=== PATIENT | female | born 1950 | race Caucasian/White ===

== ENCOUNTER 2019-02-23 09:00 | Outpatient (RCR) | payer MEDICARE, SELFPAY ==
--- NOTE | 2019-01-19 13:00 | PT.OIE ---
Current Diagnoses Cystocele, unspecified (01/19/19) Past Medical History (Last Updated 12/17/18 @ 08:54 by Nury Camara MD) Cystocele without uterine prolapse (Acute) Diverticulitis (Acute) Visit Care Team Role Provider Type Chiara Vera PA-C Primary Care Provider Advanced Apprentice Specialty: Internal Medicine Address: [address] [place] [address], [address] Email: [email or web address] Care Information Networkamerican fork hospital Nury Camara MD Attending Provider Physician Specialty: RISK ASSESSMENT CONSULTANT Address: [address] [place] [address], [address] Email: [email or web address] Physical Therapy Initial Evaluation PT-OP-A Visit Information Start: 01/19/19 10:13 Freq: Status: Active Protocol: Document 01/19/19 11:15 AMB (Rec: 01/25/19 11:07 AMB [email or web address]) Out-Patient Physical Therapy Visit Information Visit Information Visit Type Initial Evaluation Visit Start Time 11:15 Visit Stop Time 12:00 Total Visit Minutes 45 Visit Number 1 PT-OP-B Current Condition Start: 01/19/19 10:13 Freq: Status: Active Protocol: Document 01/19/19 11:15 AMB (Rec: 01/25/19 11:07 AMB [email or web address]) Current Condition History of Current Condition Onset Date 2 months ago Current Complaints heaviness/ falling out freddie with standing/ lifting History of Current Condition 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 She went to her OBGYN and was diagnosed with a cystocele, and is concerned about if it will get worse. She has noticed urinary leaking since childhood with strong laughing but denies any increase in these symptoms. Her recently passed, and he was in his 90s so she has not been sexually active in a while, but denies pain with intercourse previously. She does note that the prolapse is uncomfortable at times currently. She has a history of 1 vaginal delivery and denies remembering any symptoms around that time. Prior Functional Status Baseline Function- ADL's Independent Baseline Function- Mobility Independent Current Functional Impairments (Reported) Functional Limitations- ADL's Letting her daughter and farm hands do the heavy work Personal Factors Other Personal Factors That May Effect lives on a farm and wants to Therapy/Recovery do heavy chores PT-OP-C Subjective Start: 01/19/19 10:13 Freq: Status: Active Protocol: Document 01/19/19 11:15 AMB (Rec: 01/25/19 11:07 AMB [email or web address]) Patient Questionnaires Pelvic Pain and Urgency/Frequency Patient Symptom Scale Pelvic Pain Score 4 PT-OP-I Pelvic Floor Start: 01/19/19 10:13 Freq: Status: Active Protocol: Document 01/19/19 11:15 AMB (Rec: 01/25/19 11:07 AMB [email or web address]) Pelvic Floor Assessment Urine Pelvic Floor Surgery No Urinary Symptoms Prolapse,Falling Out Feeling/ Heavy Other Leakage Causes laughing for extended periods of time very infrequently Pelvic Clock Pelvic Clock 12-3 Atrophy Pelvic Clock 3-6 Atrophy Pelvic Clock 6-9 Atrophy Pelvic Clock 9-12 Atrophy Prolapse Cystocele Grade 2 Perineal Descent Resting Absent Bearing Present Contraction Ability Voluntary Contraction Weak Voluntary Relaxation Moderate Manual Muscle Testing Left 3 Manual Muscle Testing Right 3 Manual Muscle Testing Anterior 3 Manual Muscle Testing Posterior 3 Muscle Endurance (Seconds) 5 Number of Quick Contractions In 10 5 Seconds Comments Pelvic Floor Comments Tends to over utilize abdominal muscles PT-OP-T Assessment and Plan Start: 01/19/19 10:13 Freq: Status: Active Protocol: Document 01/19/19 11:15 AMB (Rec: 01/25/19 11:07 AMB [email or web address]) Physical Therapy Assessment Rehab Potential Rehabilitation Potential Good Evaluation Complexity Number of Personal Factors/Comorbidities 1-2 Number of Body Systems Impaired 1-2 Clinical Presentation at Evaluation Stable Impairments Impairments Strength Goals Two Impairment HEP Short Term Goal (STG) Karla will be independent and consistent with a HEP that helps her strengthen her pelvic floor. STG Duration 4 weeks Multi Slide Machine Tender Goal (LTG) Karla will lift 20 pounds with good body mechanics while xuan her pelvic floor. LTG Duration 8 weeks One Impairment Prolapse Short Term Goal (STG) Karla will show improved pelvic floor strength to 4/5 to help her decrease her symptoms of prolapse. STG Duration 4 weeks Fpc Goal (LTG) Karla will stand for 2 hours on her farm without a feeling of pelvic heaviness or falling out. LTG Duration 8 weeks Assessment Summary Assessment Karla attends PT with new onset prolapse symptoms. She does have a distant history of stress incontinence with laughing only, but these symptoms have not changed. 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 She will benefit from physical therapy to strengthen her pelvic floor and give her a better idea of how to isolate the pelvic floor with lifting and squatting activities that she does on a daily basis. Physical Therapy Plan Frequency and Duration Frequency of Treatment 1x/Week Duration of Treatment 8 weeks Plan of Care Start Date 01/19/19 Plan of Care End Date 03/16/19 Therapeutic Interventions Therapeutic Interventions Home Exercise Program,Manual Therapy,Neuromuscular Re- education,Self-Care/Home Management,Therapeutic Activities,Therapeutic Exercises Modalities Biofeedback,Electric Stimulation Next Visit Focus/Plan Next Note Type Treatment Note Next Visit Plan Begin sEMG, begin teaching pelvic floor contraction with functional activities: sit to stand/ lifting as tolerated and can do so with good form/ without compensation
--- NOTE | 2019-01-19 13:01 | PT.OPPOC ---
Current Diagnoses Cystocele, unspecified (01/19/19) Visit Care Team Role Provider Type Chiara Vera PA-C Primary Care Provider Advanced Radio Frequency Design Engineer Specialty: Internal Medicine Address: [address] [place] [address], [address] Email: [email or web address] Nury Camara MD Attending Provider Physician Specialty: URGENT CARE TECHNICIAN Address: [address] [place] [address], [address] Email: [email or web address] Plan Of Care PT-OP-T Assessment and Plan Start: 01/19/19 10:13 Freq: Status: Active Protocol: Document 01/19/19 11:15 AMB (Rec: 01/25/19 11:07 AMB [email or web address]) Physical Therapy Assessment Rehab Potential Rehabilitation Potential Good Evaluation Complexity Number of Personal Factors/Comorbidities 1-2 Number of Body Systems Impaired 1-2 Clinical Presentation at Evaluation Stable Impairments Impairments Strength Goals Two Impairment HEP Short Term Goal (STG) Karla will be independent and consistent with a HEP that helps her strengthen her pelvic floor. STG Duration 4 weeks Halfway Goal (LTG) Karla will lift 20 pounds with good body mechanics while xuan her pelvic floor. LTG Duration 8 weeks One Impairment Prolapse Short Term Goal (STG) Karla will show improved pelvic floor strength to 4/5 to help her decrease her symptoms of prolapse. STG Duration 4 weeks Clerical Office Goal (LTG) Karla will stand for 2 hours on her farm without a feeling of pelvic heaviness or falling out. LTG Duration 8 weeks Assessment Summary Assessment Karla attends PT with new onset prolapse symptoms. She does have a distant history of stress incontinence with laughing only, but these symptoms have not changed. 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 She will benefit from physical therapy to strengthen her pelvic floor and give her a better idea of how to isolate the pelvic floor with lifting and squatting activities that she does on a daily basis. Physical Therapy Plan Frequency and Duration Frequency of Treatment 1x/Week Duration of Treatment 8 weeks Plan of Care Start Date 01/19/19 Plan of Care End Date 03/16/19 Therapeutic Interventions Therapeutic Interventions Home Exercise Program,Manual Therapy,Neuromuscular Re- education,Self-Care/Home Management,Therapeutic Activities,Therapeutic Exercises Modalities Biofeedback,Electric Stimulation Next Visit Focus/Plan Next Note Type Treatment Note Next Visit Plan Begin sEMG, begin teaching pelvic floor contraction with functional activities: sit to stand/ lifting as tolerated and can do so with good form/ without compensation Plan of Care Dates Plan of Care Start Date 01/19/19 Plan of Care End Date 03/16/19
--- NOTE | 2019-01-26 16:13 | PT.OTN ---
Current Diagnoses Cystocele, unspecified (01/26/19) Physical Therapy Treatment Note PT-OP-A Visit Information Start: 01/19/19 10:13 Freq: Status: Active Protocol: Document 01/26/19 11:15 AMB (Rec: 01/26/19 13:42 AMB [email or web address]) Out-Patient Physical Therapy Visit Information Visit Information Visit Type Treatment Note Visit Start Time 11:15 Visit Stop Time 12:00 Total Visit Minutes 45 Visit Number 2 PT-OP-B Current Condition Start: 01/19/19 10:13 Freq: Status: Active Protocol: Document 01/19/19 11:15 AMB (Rec: 01/25/19 11:07 AMB [email or web address]) Current Condition History of Current Condition Onset Date 2 months ago Current Complaints heaviness/ fallingout freddie with standing/ lifting History of Current Condition 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 She went to her OBGYN and was diagnosed with a cystocele, and is concerned about if it will get worse. She has noticed urinary leaking since childhood with strong laughing but denies any increase in these symptoms. Her recently passed, and he was in his 90s so she has not been sexually active in a while, but denies pain with intercourse previously. She does note that the prolapse is uncomfortable at times currently. She has a history of 1 vaginal delivery and denies remembering any symptoms around that time. 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 Lying down and doing a bridge helps with getting the prolapse to reduce a bit. PT-OP-I Pelvic Floor Start: 01/19/19 10:13 Freq: Status: Active Protocol: Document 01/19/19 11:15 AMB (Rec: 01/25/19 11:07 AMB [email or web address]) Pelvic Floor Assessment Urine Pelvic Floor Surgery No Urinary Symptoms Prolapse,Falling Out Feeling/ Heavy Other Leakage Causes laughing for extended periods of time very infrequently Pelvic Clock Pelvic Clock 12-3 Atrophy Pelvic Clock 3-6 Atrophy Pelvic Clock 6-9 Atrophy Pelvic Clock 9-12 Atrophy Prolapse Cystocele Grade 2 Perineal Descent Resting Absent Bearing Present Contraction Ability Voluntary Contraction Weak Voluntary Relaxation Moderate Manual Muscle Testing Left 3 Manual Muscle Testing Right 3 Manual Muscle Testing Anterior 3 Manual Muscle Testing Posterior 3 Muscle Endurance (Seconds) 5 Number of Quick Contractions In 10 5 Seconds Comments Pelvic Floor Comments Tends to over utilize abdominal muscles PT-OP-Q Treatments Start: 01/19/19 10:13 Freq: Status: Active Protocol: Document 01/26/19 11:15 AMB (Rec: 01/26/19 16:13 AMB [email or web address]) Therapeutic Exercises Supine Exercises 1 Supine Exercise Name long holds and quick flicks Neuro Re-Education Treatment Other Activities 1 Details sEMG with quick flicks and 10 second holds PT-OP-T Assessment and Plan Start: 01/19/19 10:13 Freq: Status: Active Protocol: Document 01/26/19 11:15 AMB (Rec: 01/26/19 16:13 AMB [email or web address]) Physical Therapy Assessment Assessment Summary Assessment Karla had a lot of questions about if her symptoms will worsen, the use of pessaries. Did well with sEMG, maximum of 7, baseline 1. Physical Therapy Plan Next Visit Focus/Plan Next Note Type Treatment Note Next Visit Plan Begin sEMG, begin teaching pelvic floor contraction with functional activities: sit to stand/ lifting as tolerated and can do so with good form/ without compensation
--- NOTE | 2019-02-03 16:29 | PT.OTN ---
Current Diagnoses Cystocele, unspecified (02/03/19) Physical Therapy Treatment Note PT-OP-A Visit Information Start: 01/19/19 10:13 Freq: Status: Active Protocol: Document 02/03/19 10:30 AMB (Rec: 02/03/19 16:29 AMB [email or web address]) Out-Patient Physical Therapy Visit Information Visit Information Visit Type Treatment Note Visit Start Time 11:15 Visit Stop Time 12:00 Total Visit Minutes 45 Visit Number 3 PT-OP-B Current Condition Start: 01/19/19 10:13 Freq: Status: Active Protocol: Document 01/19/19 11:15 AMB (Rec: 01/25/19 11:07 AMB [email or web address]) Current Condition History of Current Condition Onset Date 2 months ago Current Complaints heaviness/ fallingout freddie with standing/ lifting History of Current Condition 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 She went to her OBGYN and was diagnosed with a cystocele, and is concerned about if it will get worse. She has noticed urinary leaking since childhood with strong laughing but denies any increase in these symptoms. Her recently passed, and he was in his 90s so she has not been sexually active in a while, but denies pain with intercourse previously. She does note that the prolapse is uncomfortable at times currently. She has a history of 1 vaginal delivery and denies remembering any symptoms around that time. 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 PT-OP-I Pelvic Floor Start: 01/19/19 10:13 Freq: Status: Active Protocol: Document 01/19/19 11:15 AMB (Rec: 01/25/19 11:07 AMB [email or web address]) Pelvic Floor Assessment Urine Pelvic Floor Surgery No Urinary Symptoms Prolapse,Falling Out Feeling/ Heavy Other Leakage Causes laughing for extended periods of time very infrequently Pelvic Clock Pelvic Clock 12-3 Atrophy Pelvic Clock 3-6 Atrophy Pelvic Clock 6-9 Atrophy Pelvic Clock 9-12 Atrophy Prolapse Cystocele Grade 2 Perineal Descent Resting Absent Bearing Present Contraction Ability Voluntary Contraction Weak Voluntary Relaxation Moderate Manual Muscle Testing Left 3 Manual Muscle Testing Right 3 Manual Muscle Testing Anterior 3 Manual Muscle Testing Posterior 3 Muscle Endurance (Seconds) 5 Number of Quick Contractions In 10 5 Seconds Comments Pelvic Floor Comments Tends to over utilize abdominal muscles PT-OP-Q Treatments Start: 01/19/19 10:13 Freq: Status: Active Protocol: Document 02/03/19 10:30 AMB (Rec: 02/03/19 16:29 AMB [email or web address]) Therapeutic Exercises Supine Exercises 2 Supine Exercise Name roll ins/ roll outs Reps/Minutes #2 t band Comments 2x10 ea Neuro Re-Education Treatment Other Activities 1 Details sEMG with quick flicks and 10 second holds PT-OP-T Assessment and Plan Start: 01/19/19 10:13 Freq: Status: Active Protocol: Document 02/03/19 10:30 AMB (Rec: 02/03/19 16:29 AMB [email or web address]) Physical Therapy Assessment Assessment Summary Assessment Did better today holding 10 second holds, did tend to fatigue towards end of session . gave roll in roll outs for HEP. Physical Therapy Plan Next Visit Focus/Plan Next Note Type Treatment Note Next Visit Plan Begin sEMG, begin teaching pelvic floor contraction with functional activities: sit to stand/ lifting as tolerated and can do so with good form/ without compensation
--- NOTE | 2019-02-10 15:54 | PT.OTN ---
Current Diagnoses Cystocele, unspecified (02/09/19) Physical Therapy Treatment Note PT-OP-A Visit Information Start: 01/19/19 10:13 Freq: Status: Active Protocol: Document 02/09/19 09:00 AMB (Rec: 02/10/19 13:01 AMB [email or web address]) Out-Patient Physical Therapy Visit Information Visit Information Visit Type Treatment Note Visit Start Time 09:00 Visit Stop Time 09:45 Total Visit Minutes 45 Visit Number 4 PT-OP-B Current Condition Start: 01/19/19 10:13 Freq: Status: Active Protocol: Document 01/19/19 11:15 AMB (Rec: 01/25/19 11:07 AMB [email or web address]) Current Condition History of Current Condition Onset Date 2 months ago Current Complaints heaviness/ fallingout freddie with standing/ lifting History of Current Condition 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 She went to her OBGYN and was diagnosed with a cystocele, and is concerned about if it will get worse. She has noticed urinary leaking since childhood with strong laughing but denies any increase in these symptoms. Her recently passed, and he was in his 90s so she has not been sexually active in a while, but denies pain with intercourse previously. She does note that the prolapse is uncomfortable at times currently. She has a history of 1 vaginal delivery and denies remembering any symptoms around that time. 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 Static standing is the most symptomatic. PT-OP-I Pelvic Floor Start: 01/19/19 10:13 Freq: Status: Active Protocol: Document 01/19/19 11:15 AMB (Rec: 01/25/19 11:07 AMB [email or web address]) Pelvic Floor Assessment Urine Pelvic Floor Surgery No Urinary Symptoms Prolapse,Falling Out Feeling/ Heavy Other Leakage Causes laughing for extended periods of time very infrequently Pelvic Clock Pelvic Clock 12-3 Atrophy Pelvic Clock 3-6 Atrophy Pelvic Clock 6-9 Atrophy Pelvic Clock 9-12 Atrophy Prolapse Cystocele Grade 2 Perineal Descent Resting Absent Bearing Present Contraction Ability Voluntary Contraction Weak Voluntary Relaxation Moderate Manual Muscle Testing Left 3 Manual Muscle Testing Right 3 Manual Muscle Testing Anterior 3 Manual Muscle Testing Posterior 3 Muscle Endurance (Seconds) 5 Number of Quick Contractions In 10 5 Seconds Comments Pelvic Floor Comments Tends to over utilize abdominal muscles PT-OP-Q Treatments Start: 01/19/19 10:13 Freq: Status: Active Protocol: Document 02/10/19 09:00 AMB (Rec: 02/10/19 15:54 AMB [email or web address]) Therapeutic Exercises Supine Exercises 2 Supine Exercise Name roll ins/ roll outs Reps/Minutes #2 t band Comments 2x10 ea Standing Exercises 3 Standing Exercise Name Quick contract in standing Comments varied foot position 2 Standing Exercise Name PF contract with mini squat Comments 10 1 Standing Exercise Name PF contract with sit to stand Comments 10 Neuro Re-Education Treatment Other Activities 1 Details sEMG with quick flicks and 10 second holds PT-OP-T Assessment and Plan Start: 01/19/19 10:13 Freq: Status: Active Protocol: Document 02/09/19 09:00 AMB (Rec: 02/10/19 13:01 AMB [email or web address]) Physical Therapy Assessment Assessment Summary Assessment Karla did well with her exercises today, continues to improve in strength, but continues to struggle with static standing for extended periods of time. Physical Therapy Plan Next Visit Focus/Plan Next Note Type Treatment Note Next Visit Plan sEMG, begin teaching pelvic floor contraction with functional activities: sit to stand/ lifting as tolerated and can do so with good form/ without compensation
--- NOTE | 2019-02-16 10:03 | PT.OTN ---
Current Diagnoses Cystocele, unspecified (02/16/19) Physical Therapy Treatment Note PT-OP-A Visit Information Start: 01/19/19 10:13 Freq: Status: Active Protocol: Document 02/16/19 09:00 AMB (Rec: 02/16/19 10:03 AMB [id number]) Out-Patient Physical Therapy Visit Information Visit Information Visit Type Treatment Note Visit Start Time 09:00 Visit Stop Time 09:45 Total Visit Minutes 45 Visit Number 5 PT-OP-B Current Condition Start: 01/19/19 10:13 Freq: Status: Active Protocol: Document 01/19/19 11:15 AMB (Rec: 01/25/19 11:07 AMB [id number]) Current Condition History of Current Condition Onset Date 2 months ago Current Complaints heaviness/ fallingout freddie with standing/ lifting History of Current Condition 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 She went to her OBGYN and was diagnosed with a cystocele, and is concerned about if it will get worse. She has noticed urinary leaking since childhood with strong laughing but denies any increase in these symptoms. Her recently passed, and he was in his 90s so she has not been sexually active in a while, but denies pain with intercourse previously. She does note that the prolapse is uncomfortable at times currently. She has a history of 1 vaginal delivery and denies remembering any symptoms around that time. Prior Functional Status Baseline Function- ADL's Independent Baseline Function- Mobility Independent Current Functional Impairments (Reported) Functional Limitations- ADL's Letting her daughter and farm hands do the heavy work Personal Factors Other Personal Factors That May Effect lives on a farm and wants to Therapy/Recovery do heavy chores PT-OP-C Subjective Start: 01/19/19 10:13 Freq: Status: Active Protocol: Document 02/16/19 09:00 AMB (Rec: 02/16/19 10:03 AMB [id number]) OP-PT Subjective Patient Comments Patient Comments Pt did really feel the prolapse after jumping out of the truck this week. PT-OP-I Pelvic Floor Start: 01/19/19 10:13 Freq: Status: Active Protocol: Document 01/19/19 11:15 AMB (Rec: 11/10/19 11:07 AMB [email or web address]) Pelvic Floor Assessment Urine Pelvic Floor Surgery No Urinary Symptoms Prolapse,Falling Out Feeling/ Heavy Other Leakage Causes laughing for extended periods of time very infrequently Pelvic Clock Pelvic Clock 12-3 Atrophy Pelvic Clock 3-6 Atrophy Pelvic Clock 6-9 Atrophy Pelvic Clock 9-12 Atrophy Prolapse Cystocele Grade 2 Perineal Descent Resting Absent Bearing Present Contraction Ability Voluntary Contraction Weak Voluntary Relaxation Moderate Manual Muscle Testing Left 3 Manual Muscle Testing Right 3 Manual Muscle Testing Anterior 3 Manual Muscle Testing Posterior 3 Muscle Endurance (Seconds) 5 Number of Quick Contractions In 10 5 Seconds Comments Pelvic Floor Comments Tends to over utilize abdominal muscles PT-OP-Q Treatments Start: 01/19/19 10:13 Freq: Status: Active Protocol: Document 02/16/19 09:00 AMB (Rec: 02/16/19 10:03 AMB [id number]) Therapeutic Exercises Sitting Exercises 1 Sitting Exercise Name on surinamese ball pelvic floor contraction Comments marching with alt arm swing Standing Exercises 3 Standing Exercise Name Quick contract in standing Comments varied foot position 2 Standing Exercise Name PF contract with mini squat Comments 10 1 Standing Exercise Name PF contract with sit to stand Comments 10 Other Exercises 1 Other Exercise Name quadruped pelvic floor contraction Comments with UE/ LE flex/ext Neuro Re-Education Treatment Other Activities 1 Details sEMG with quick flicks and 10 second holds PT-OP-T Assessment and Plan Start: 01/19/19 10:13 Freq: Status: Active Protocol: Document 02/16/19 09:00 AMB (Rec: 02/16/19 10:03 AMB [id number]) Physical Therapy Assessment Assessment Summary Assessment With standing, pt reports this is as worse as it ever feels, Grade 3 cystocele- almost at vaginal opening, just had to seperate labia majora and easily visible. Physical Therapy Plan Next Visit Focus/Plan Next Note Type Treatment Note Next Visit Plan Pt doing well with strengthening, but having more difficulty incorporating it into functional activities.
--- NOTE | 2019-02-23 12:20 | PT.OTN ---
Current Diagnoses Cystocele, unspecified (02/23/19) Physical Therapy Treatment Note PT-OP-A Visit Information Start: 01/19/19 10:13 Freq: Status: Active Protocol: Document 02/23/19 09:00 AMB (Rec: 02/25/19 13:32 AMB [id number]) Out-Patient Physical Therapy Visit Information Visit Information Visit Type Discharge Summary Visit Start Time 09:00 Visit Stop Time 09:45 Total Visit Minutes 45 Visit Number 6 PT-OP-B Current Condition Start: 01/19/19 10:13 Freq: Status: Active Protocol: Document 01/19/19 11:15 AMB (Rec: 01/25/19 11:07 AMB [email or web address]) Current Condition History of Current Condition Onset Date 2 months ago Current Complaints heaviness/ fallingout freddie with standing/ lifting History of Current Condition 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 She went to her OBGYN and was diagnosed with a cystocele, and is concerned about if it will get worse. She has noticed urinary leaking since childhood with strong laughing but denies any increase in these symptoms. Her recently passed, and he was in his 90s so she has not been sexually active in a while, but denies pain with intercourse previously. She does note that the prolapse is uncomfortable at times currently. She has a history of 1 vaginal delivery and denies remembering any symptoms around that time. 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 She feels that she will continue her exercises in the custodial . She knows she can lie down if the prolapse gets bad and it will go away for a period of time. PT-OP-I Pelvic Floor Start: 01/19/19 10:13 Freq: Status: Active Protocol: Document 01/19/19 11:15 AMB (Rec: 01/25/19 11:07 AMB [email or web address]) Pelvic Floor Assessment Urine Pelvic Floor Surgery No Urinary Symptoms Prolapse,Falling Out Feeling/ Heavy Other Leakage Causes laughing for extended periods of time very infrequently Pelvic Clock Pelvic Clock 12-3 Atrophy Pelvic Clock 3-6 Atrophy Pelvic Clock 6-9 Atrophy Pelvic Clock 9-12 Atrophy Prolapse Cystocele Grade 2 Perineal Descent Resting Absent Bearing Present Contraction Ability Voluntary Contraction Weak Voluntary Relaxation Moderate Manual Muscle Testing Left 3 Manual Muscle Testing Right 3 Manual Muscle Testing Anterior 3 Manual Muscle Testing Posterior 3 Muscle Endurance (Seconds) 5 Number of Quick Contractions In 10 5 Seconds Comments Pelvic Floor Comments Tends to over utilize abdominal muscles PT-OP-Q Treatments Start: 01/19/19 10:13 Freq: Status: Active Protocol: Document 02/23/19 09:00 AMB (Rec: 02/25/19 13:32 AMB [id number]) Therapeutic Exercises Standing Exercises 3 Standing Exercise Name Quick contract in standing Comments varied foot position 2 Standing Exercise Name PF contract with mini squat Comments 10 1 Standing Exercise Name PF contract with sit to stand Comments 10 Neuro Re-Education Treatment Other Activities 1 Details sEMG with quick flicks and 10 second holds PT-OP-T Assessment and Plan Start: 01/19/19 10:13 Freq: Status: Active Protocol: Document 02/23/19 09:00 AMB (Rec: 02/23/19 09:40 AMB [id number]) Physical Therapy Assessment Goals Two Impairment HEP Short Term Goal (STG) Karla will be independent and consistent with a HEP that helps her strengthen her pelvic floor. STG Duration MET Snf Goal (LTG) Karla will lift 20 pounds with good body mechanics while xuan her pelvic floor. LTG Duration MET One Impairment Prolapse Short Term Goal (STG) Karla will show improved pelvic floor strength to 4/5 to help her decrease her symptoms of prolapse. STG Duration 4 weeks Snf Goal (LTG) Karla will stand for 2 hours on her farm without a feeling of pelvic heaviness or falling out. LTG Duration INTERMITTENTLY MET Assessment Summary Assessment Average of 14. Maximum 25. Baseline 1. Karla has improved well with strengthening. She continues to have symptoms of prolapse with extended standing. 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 Physical Therapy Plan Discharge Physical Therapy Discharge Reasons Goals Met
== END 2019-02-23 10:00 ==
LOC: PHYS 09:00
PROVIDERS: PCP Physician Assistant; Visit Provider Specialist
DX: N81.10 Cystocele, unspecified (principal)
CPT/HCPCS: 97110; 97112; 97161

== ENCOUNTER → 2019-11-19 19:44 | Outpatient (ROUT) | payer MEDICARE, SELFPAY ==
[2019-11-19 20:15] LABS: Add Manual Diff / Slide Review NO; Basophils Absolute Auto 0 /uL (0-100); Basophils Percent Auto 0.7 % (0-2); Eosinophils Absolute Auto 100 /uL (0-450); Eosinophils Percent Auto 1.8 % (2-4); Hematocrit 41.5 % (36-46); Hemoglobin 13.6 g/dL (12.0-16.0); Lymphocytes Absolute Auto 1200 /uL (1100-4500); Lymphocytes Percent Auto 21.7 % (25-40); Mean Corpuscular HGB Conc 32.6 % (30-36); Mean Corpuscular Hemoglobin 28.3 PG (26-34); Mean Corpuscular Volume 86.7 fL (80-100); Monocytes Absolute Auto 400 /uL (0-900); Monocytes Percent Auto 7.2 % (3-14); Neutrophils Absolute Auto 3700 /uL (1500-7000); Neutrophils Percent Auto 68.6 % (50-75); Platelet Count 243 X10^3/uL (150-400); Red Blood Cell Count 4.79 X10^6/uL (4.0-5.2); Red Cell Distribution Width 13.7 % (11.6-14.8); White Blood Cell Count 5.4 X10^3/uL (4.5-11.0)
[2019-11-19 20:27] LABS: Alanine Aminotransferase 23 IU/L (<35); Albumin 4.3 g/dL (3.5-5.0); Albumin Globulin Ratio 1.8 (1.0-2.8); Alkaline Phosphatase 100 U/L (38-126); Aspartate Aminotransferase 31 IU/L (14-36); BUN Creatinine Ratio 33.8 (6-22); Bilirubin Total 0.5 mg/dL (0.2-1.3); Blood Urea Nitrogen 22 mg/dL (7-17); Calcium 9.7 mg/dL (8.4-10.2); Carbon Dioxide 26 mmol/L (22-32); Chloride 105 mmol/L (98-107); Cholesterol 236 mg/dL (140-199); Estimated Glomerular Filt Rate > 60.0 mL/min (>60); Globulin 2.4 g/dL (1.7-4.1); Glucose 94 mg/dL (80-110); HDL Cholesterol 65 mg/dL (40-60); HEMOLYSIS < 15 (0-50); LDL Cholesterol Calculated 143 mg/dL (<100); Potassium 4.5 mmol/L (3.4-5.1); Sodium 137 mmol/L (137-145); Total Protein 6.7 g/dL (6.3-8.2); Triglycerides 142 mg/dL (35-150)
[2019-11-19 20:41] LABS: Vitamin D 25 Hydroxy (D3) 35.4 ng/mL (30.0-100.0)
== END ==
PROVIDERS: PCP Physician Assistant; Visit Provider Physician Assistant
DX: K62.5 Hemorrhage of anus and rectum (principal); R63.5 Abnormal weight gain; E78.2 Mixed hyperlipidemia; K57.33 Diverticulitis of large intestine without perforation or abscess with bleeding; E55.9 Vitamin D deficiency, unspecified; R68.89 Other general symptoms and signs
CPT/HCPCS: 80053; 80061; 82306; 84443; 85025

== ENCOUNTER → 2020-03-14 15:50 | Outpatient (CLI) | payer MEDICARE, SELFPAY ==
--- NOTE | 2020-03-14 | DI.RAD.S_ITS ---
PROCEDURE: XR FOOT LT MIN 3V INDICATIONS: Left Foot Pain TECHNIQUE: 3 views of the foot were acquired. COMPARISON: None. FINDINGS: Bones: No fractures or dislocations. No suspicious bony lesions. Soft tissues: No tibiotalar joint effusion. Achilles tendon appears normal. IMPRESSION: No trauma found, no appreciable degenerative change. Source of left foot pain is not identified. Dictated by: Miguel Gao M.D. on 03/14/2020 at 17:03 Approved by: Miguel Gao M.D. on 03/14/2020 at 17:04
== END ==
PROVIDERS: PCP Physician Assistant; Referring Provider Student in an Organized Health Care Education/Training Program; Visit Provider Student in an Organized Health Care Education/Training Program
DX: M79.672 Pain in left foot (principal)
CPT/HCPCS: 73630

== ENCOUNTER → 2022-08-06 11:36 | Outpatient (CLI) | payer OTHER, SELFPAY ==
--- NOTE | 2022-08-06 12:03 | DI.DEXA.S_ITS ---
Bone Density Report Name: DERRICK CAMACHO Luis Age: 72 Sex: Female Ethnicity: White Date of : 1950 Indication: postmenopausal; screening for osteoporosis; Referring Provider: MILAN MOLINA Study: Bone densitometry was performed. Exam Date: August 06, 2022 Accession number: [id number] Bone Density: Region BMD T-score Z-score Classification AP Spine(L1-L4) 1.004 -0.4 1.7 Normal Femoral Neck (Left) 0.761 -0.8 1.0 Normal Total Hip (Left) 0.870 -0.6 0.9 Normal Femoral Neck (Right) 0.708 -1.3 0.5 Osteopenia Total Hip (Right) 0.864 -0.6 0.9 Normal Total Hip Mean 0.867 -0.6 0.9 Normal World Health Organization criteria for BMD impression classify patients as: Normal (T-score at or above -1.0), Osteopenia (T-score between -1.0 and -2.5), or Osteoporosis (T-score at or below -2.5). 10-year Fracture Risk(1): Major Osteoporotic Fracture 9.4% Hip Fracture 1.2% Reported Risk Factors: [place] (), Neck BMD=0.708, BMI=27.4 (1) FRAX(R) Version 3.08. Fracture probability calculated for an untreated patient. Fracture probability may be lower if the patient has received treatment. Impression: The patient has low bone mass, based on the Right Femoral Neck T-score. The patient has an estimated ten-year risk of hip fracture of 1.2% and an estimated ten-year risk of major fracture of 9.4%, based on the WHO FRAX algorithm. Discussion: BONE DENSITY IS LOW AT ONE OR MORE SKELETAL SITES. This patient's lowest T-score is low at one or more skeletal sites. It meets the World Health Organization's (WHO) criteria for ?low bone mass? (T-score between -1.0 and -2.5). The patient's 10-year risk of fracture as calculated by FRAX is less than the threshold where pharmacological therapy is recommended by the National Osteoporosis Foundation (NOF). However, all treatment decisions require clinical judgment and consideration of individual patient factors, including patient preferences, comorbidities, previous drug use, risk factors not captured in the FRAX model (e.g., frailty, falls, vitamin D deficiency, increased bone turnover, interval significant decline in bone density) and possible under or overestimation of fracture risk by FRAX. The patient should follow a healthful lifestyle (good nutrition with adequate calcium and vitamin D, and appropriate weight-bearing exercise). Follow-Up: Consider repeating this study in 2 to 3 years to reassess this patient's status, or sooner if there is some new clinical indication. Reported by: CAREY CHATTERJEE M.D. on 08/06/2022 12:19:00 PM.
== END ==
PROVIDERS: PCP Nurse Practitioner Family; Referring Provider Nurse Practitioner Family; Visit Provider Nurse Practitioner Family
DX: Z78.0 Asymptomatic menopausal state (principal); M85.88 Other specified disorders of bone density and structure, other site
CPT/HCPCS: 77080